=== PATIENT | male | born 1980 | race African-American/Black ===

== ENCOUNTER 2022-06-28 11:46 | Emergency (ER) | payer BC | END 2022-06-28 13:13 | disposition home or self-care (01) | LOC: MW.ED 11:46 | DX: I10 Essential (primary) hypertension (principal) | CPT/HCPCS: 99283 ==

== ENCOUNTER 2022-08-26 17:56 | Emergency (ER) | payer BC ==
[2022-08-26] MEDS ORDERED: Sodium Chloride 0.9% 10 ML Syringe FLUSH PRN (18:07)
[2022-08-26] MEDS ORDERED: Sodium Chloride 0.9% 2.5 ML Syringe FLUSH PRN (18:07)
[2022-08-26] MEDS ORDERED: Aspirin 81 MG Tab.Chew PO ONE (18:22)
[2022-08-26] MEDS ORDERED: Clopidogrel 75 MG Tab PO ONE (18:22)
[2022-08-26 18:31] LABS: HEMATOCRIT 41.7 % (38.0-50.0); HEMOGLOBIN 14.5 g/dL (13.0-17.0); MEAN CORPUSCULAR HEMOGLOBIN 28.9 pg (27.0-32.0); MEAN CORPUSCULAR HGB CONC 34.8 g/dL (31.0-37.0); MEAN CORPUSCULAR VOLUME 83.1 fL (80.0-98.0); PLATELET COUNT,PLT 245 K/uL (150-400); RED BLOOD CELL COUNT 5.02 M/uL (4.50-5.90); WHITE BLOOD CELL COUNT,WBC 8.58 K/uL (4.0-11.0)
[2022-08-26] MEDS ORDERED: Aspirin 81 MG Tab.Chew ONE (18:37)
[2022-08-26] MEDS ORDERED: Heparin Sodium 5,000 Units/ML Vial IVPUSH STA (18:40)
[2022-08-26] MEDS ORDERED: Clopidogrel 75 MG Tab ONE (18:41)
[2022-08-26] MEDS ORDERED: Heparin Sodium/0.45% NaCl 500 ML IV SCH (18:45)
[2022-08-26 18:54] LABS: EOSINOPHILS ABSOLUTE MAN 0.3 (0.0-0.7); EOSINOPHILS PERCENT MAN 3 % (0.0-7.0); LYMPHOCYTES ABSOLUTE MAN 3.4 (0.6-2.4); LYMPHOCYTES PERCENT MAN 40 % (16.0-40.0); MONOCYTES ABSOLUTE MAN 0.7 (0.0-0.8); MONOCYTES PERCENT MAN 8 % (0.0-15.0); SEG NEUTROPHILS ABSOLUTE MAN 4.2 (1.4-5.7); SEG NEUTROPHILS PERCENT MAN 49 % (48.0-80.0)
[2022-08-26 18:55] LABS: ALBUMIN 3.9 g/dL (3.4-5.0); BILIRUBIN TOTAL 0.5 mg/dL (0.2-1.0); CALCIUM 8.9 mg/dL (8.5-10.1); CARBON DIOXIDE,CO2 25.3 mmol/L (21.0-32.0); EST CRCL DRUG DOSING (CG) 104.54 mL/min; POTASSIUM,K 3.6 mmol/L (3.5-5.1); PROTEIN TOTAL,TP 7.7 g/dL (6.4-8.2)
[2022-08-26 19:10] LABS: MAGNESIUM 1.8 mg/dL (1.8-2.4)
== END 2022-08-26 19:07 ==
LOC: MW.ED 17:56
DX: I21.3 ST elevation (STEMI) myocardial infarction of unspecified site (principal); I10 Essential (primary) hypertension
CPT/HCPCS: 36415; 71045; 80053; 83690; 83735; 83880; 84484; 85025; 85730; 93005; 96365; 99285; A9270; J1644; J3490; 93010

== ENCOUNTER 2022-08-31 13:54 | Emergency (ER) | payer BC | END 2022-08-31 16:30 | disposition home or self-care (01) | LOC: MW.ED 13:54 | DX: G89.18 Other acute postprocedural pain (principal); R10.31 Right lower quadrant pain; I10 Essential (primary) hypertension | CPT/HCPCS: 93971-26-RT; 93971-RT; 99283; 99284 ==

== ENCOUNTER 2022-11-09 19:46 | Emergency (ER) | payer BC ==
[2022-11-09] MEDS ORDERED: Bacitracin Oint 1 GM U/D Packet TOP ONE (19:58)
[2022-11-09] MEDS ORDERED: Diphtheria,Pertussis(Acell),Tetanus Vaccine 0.5 ML Syringe IM ONE (19:58)
== END 2022-11-09 20:27 | disposition home or self-care (01) ==
LOC: MW.ED 19:46
DX: S81.811A Laceration without foreign body, right lower leg, initial encounter (principal); I10 Essential (primary) hypertension; Z79.899 Other long term (current) drug therapy; W45.8XXA Other foreign body or object entering through skin, initial encounter; Y92.59 Other trade areas as the place of occurrence of the external cause; Y99.0 Civilian activity done for income or pay
CPT/HCPCS: 90471; 90715; 99282; 99283-25

== ENCOUNTER 2022-12-09 09:02 | Emergency (ER) | payer BC ==
[2022-12-09 10:11] LABS: CORONAVIRUS COVID-19 NAA NEGATIVE (NEGATIVE); INFLUENZA A NAA NEGATIVE (NEGATIVE); INFLUENZA B NAA NEGATIVE (NEGATIVE); RESPIRATORY SYNCYTIAL VIR NAA NEGATIVE (NEGATIVE)
== END 2022-12-09 11:15 | disposition home or self-care (01) ==
LOC: MW.ED 09:02
DX: J18.9 Pneumonia, unspecified organism (principal); I10 Essential (primary) hypertension; Z20.822 Contact with and (suspected) exposure to COVID-19
CPT/HCPCS: 0241U; 71046; 99283

== ENCOUNTER 2023-09-05 20:41 | Emergency (ER) | payer SELFPAY ==
[2023-09-05] MEDS: Lidocaine 1% 10 ML MDV INJECT ONE (22:38)
[2023-09-05] MEDS: Lidocaine 1% 5 ML VIAL ONE (22:38)
== END 2023-09-05 23:38 | disposition home or self-care (01) ==
LOC: MW.ED 20:41
DX: S81.812A Laceration without foreign body, left lower leg, initial encounter (principal); I10 Essential (primary) hypertension; Z75.8 Other problems related to medical facilities and other health care; W26.8XXA Contact with other sharp object(s), not elsewhere classified, initial encounter
CPT/HCPCS: 12001; 99283; J3490

== ENCOUNTER 2023-09-11 19:29 | Emergency (ER) | payer SELFPAY ==
[2023-09-11] MEDS: Doxycycline 100 MG Cap PO ONE (20:35)
== END 2023-09-11 20:35 | disposition home or self-care (01) ==
LOC: MW.ED 19:29
DX: R22.42 Localized swelling, mass and lump, left lower limb (principal); I10 Essential (primary) hypertension; Z75.8 Other problems related to medical facilities and other health care
CPT/HCPCS: 73590; 99283; A9270

== ENCOUNTER 2023-09-16 21:31 | Emergency (ER) | payer SELFPAY | END 2023-09-16 23:00 | disposition home or self-care (01) | LOC: MW.ED 21:31 | DX: S81.812D Laceration without foreign body, left lower leg, subsequent encounter (principal); Z48.02 Encounter for removal of sutures; I10 Essential (primary) hypertension | CPT/HCPCS: 99281 ==

== ENCOUNTER 2024-08-16 16:40 | Emergency (ER) | payer BC ==
[2024-08-16] MEDS: Methocarbamol 750 MG Tab PO STA (19:17)
[2024-08-16] MEDS: predniSONE 20 MG Tab PO ONE (19:17)
[2024-08-16] MEDS: Ibuprofen 800 MG Tab PO ONE (19:18)
[2024-08-16] MEDS: HYDROmorphone 0.5 MG/0.5 ML Syringe IM ONE (19:24)
[2024-08-16] MEDS: HYDROmorphone 1 MG/ML Syringe IM ONE (19:32)
== END 2024-08-16 20:38 | disposition home or self-care (01) ==
LOC: MW.ED 16:40
DX: M54.50 Low back pain, unspecified (principal); I10 Essential (primary) hypertension; Z79.899 Other long term (current) drug therapy
CPT/HCPCS: 96372; 99283; A9270; J1171; 99282

== ENCOUNTER 2024-08-19 17:27 | Emergency (ER) | payer BC ==
[2024-08-19 18:31] LABS: BASOPHILS ABSOLUTE AUTO 0.04 K/uL (0.00-0.20); BASOPHILS PERCENT AUTO 0.6 % (0.0-1.0); EOSINOPHILS ABSOLUTE AUTO 0.15 K/uL (0.00-0.45); EOSINOPHILS PERCENT AUTO 2.2 % (0.0-6.0); HEMATOCRIT 41.8 % (42.0-52.0); HEMOGLOBIN 14.4 g/dL (14.0-18.0); IMMATURE GRAN ABSOLUTE AUTO 0.05 K/uL (0.00-0.05); IMMATURE GRAN PERCENT AUTO 0.7 % (0.0-0.4); LYMPHOCYTES PERCENT AUTO 44.5 % (24.0-44.0); MEAN CORPUSCULAR HEMOGLOBIN 28.4 pg (28.0-32.0); MEAN CORPUSCULAR HGB CONC 34.4 g/dL (32.0-36.0); MEAN CORPUSCULAR VOLUME 82.4 fL (83.0-99.0); MEAN PLATELET VOLUME 9.4 fL (9.4-12.4); MONOCYTES ABSOLUTE AUTO 0.67 K/uL (0.00-0.80); MONOCYTES PERCENT AUTO 9.9 % (0.0-8.0); NEUTROPHILS ABSOLUTE AUTO 2.83 K/uL (1.80-7.70); NEUTROPHILS PERCENT AUTO 42.1 % (41.0-71.0); PLATELET COUNT,PLT 260 K/uL (150-400); RED BLOOD CELL COUNT 5.07 M/uL (4.52-5.90); WHITE BLOOD CELL COUNT,WBC 6.74 K/uL (3.9-11.3)
[2024-08-19 18:42] LABS: INR 1.01 (0.86-1.11)
[2024-08-19 18:48] LABS: APPEARANCE,URINE CLEAR; BILIRUBIN,URINE NEGATIVE (NEGATIVE); COLOR,URINE YELLOW; GLUCOSE,URINE NEGATIVE (NEGATIVE); KETONES,URINE NEGATIVE (NEGATIVE); LEUKOCYTE ESTERASE,URINE NEGATIVE (NEGATIVE); NITRITE,URINE NEGATIVE (NEGATIVE); OCCULT BLOOD,URINE TRACE-INTACT (NEGATIVE); PROTEIN,URINE NEGATIVE (NEGATIVE); UROBILINOGEN,URINE 0.2 EU/dL (<2.0)
[2024-08-19] MEDS: Orphenadrine 60 MG/2 ML Inj IM ONE (18:49)
[2024-08-19 18:54] LABS: A/G RATIO 1.2 (0.9-1.6); BILIRUBIN TOTAL 0.6 mg/dL (0.2-1.0); CALCIUM 8.9 mg/dL (8.5-10.1); CARBON DIOXIDE,CO2 27.6 mmol/L (21.0-32.0); CREATININE 1.1 mg/dL (0.8-1.3); EST CRCL DRUG DOSING (CG) 93.08 mL/min; POTASSIUM,K 4.1 mmol/L (3.5-5.1); PROTEIN TOTAL,TP 7.3 g/dL (6.4-8.2)
[2024-08-19 19:03] LABS: AMORPHOUS SEDIMENT,URINE LIGHT (NEGATIVE); BACTERIA,URINE RARE (NEGATIVE); EPITHELIAL CELLS,URINE RARE (NONE-FEW); RBC,URINE 0-2 (0-2/HPF); WBC,URINE 0-1 (0-5/HPF)
[2024-08-19] MEDS: Iopamidol 755 MG/ML 500 ML Multipack Bottle IVPUSH STA (19:39)
[2024-08-19] MEDS: Lisinopril/Hydrochlorothiazide 10-12.5 MG Tab PO ONE (20:41)
== END 2024-08-19 21:21 | disposition home or self-care (01) ==
LOC: MW.ED 17:27
DX: M54.50 Low back pain, unspecified (principal); R10.9 Unspecified abdominal pain; I10 Essential (primary) hypertension; Z88.5 Allergy status to narcotic agent; Z79.899 Other long term (current) drug therapy; Z92.29 Personal history of other drug therapy
CPT/HCPCS: 36415; 72131; 74177; 80053; 81001; 83605; 83690; 85025; 85610; 96372; 99284; A9270; J2360; Q9967; 99283